=== PATIENT | male | born 1960 | race Two or more races ===

== ENCOUNTER 2019-05-14 06:28 | Day surgery (SDC) | payer OTHER, SELFPAY ==
[~2019-05-14] VITALS: Ht 170.2 cm; Wt 70.3 kg
[2019-05-14] VITALS (10 sets, daily range): BP systolic 119–129; BP diastolic 76–86
[2019-05-14] MEDS ORDERED: EPINEPHrine 1mg/1ml Amp ONE ×3 (06:34→06:56)
[2019-05-14] MEDS ORDERED: Polysporin Opth Oint 3.5gm ONE (06:35)
[2019-05-14] MEDS ORDERED: Diclofenac Sod 0.1% Op Soln ONE (06:35)
[2019-05-14] MEDS ORDERED: prednisoLONE acetate 1% Opth Susp 1ml ONE (06:35)
[2019-05-14] MEDS ORDERED: Carbachol 0.01% Op Soln 1.5ml vial ONE (06:35)
[2019-05-14] MEDS ORDERED: Ciprofloxacin Opth Soln 2.5ml ONE (06:35)
[2019-05-14] MEDS ORDERED: Lidocaine 1% MPF 10mg/ml 5ml ONE ×2 (06:35→07:00)
[2019-05-14] MEDS ORDERED: Lidocaine 4% Amp 5ml ONE (06:35)
[2019-05-14] MEDS ORDERED: Tetracaine 0.5% Opth 4ml Soln ONE (06:36)
[2019-05-14] MEDS ORDERED: Dexamethasone 4mg/ml vial ONE (06:36)
[2019-05-14] MEDS ORDERED: BSS 15ml BTL ONE ×2 (06:36→06:37)
[2019-05-14] MEDS ORDERED: BSS 500ml btl ONE ×2 (06:36→08:15)
[2019-05-14] MEDS ORDERED: Povidone-Iodine 5% opth solution ONE (06:36)
[2019-05-14] MEDS ORDERED: Sodium Hyaluronate 10 mg/ml 0.85ml ONE (06:36)
[2019-05-14] MEDS ORDERED: Lidocaine 2% MPF 5ml Vial INJ ONE (06:56)
[2019-05-14] MEDS ORDERED: Propofol 200mg/20ml IV ONE (07:00)
[2019-05-14] MEDS ORDERED: NS Irrig 1000ml ONE (07:00)
[2019-05-14] MEDS ORDERED: Sterile Water Irrig 1000ml IRRIG ONE (07:00)
[2019-05-14] MEDS ORDERED: LR 1000ml ONE (07:00)
[2019-05-14] MEDS: Ciprofloxacin Opth Soln 2.5ml LEFT EYE SCH ×4 (07:01→07:21)
[2019-05-14] MEDS ORDERED: Ketamine 500mg/10ml vial ONE (07:01)
[2019-05-14] MEDS ORDERED: Midazolam 2mg/2ml Inj ONE (07:01)
[2019-05-14] MEDS: Phenylephrine 10% Opth Soln 5ml LEFT EYE SCH ×4 (07:01→07:20)
[2019-05-14] MEDS: Diclofenac Sod 0.1% Op Soln LEFT EYE SCH ×4 (07:01→07:20)
[2019-05-14] MEDS: Akten 3.5% 1ml Btl LEFT EYE SCH ×4 (07:01→07:21)
[2019-05-14] MEDS: Cyclopentolate 1% Opth Sol 2ml LEFT EYE SCH ×4 (07:01→07:20)
[2019-05-14] MEDS ORDERED: ATORVASTATIN CA20 MG ORAL (07:07)
[2019-05-14] MEDS ORDERED: LOTREL 5-10 MG1 EAC1 ORAL (07:07)
--- NOTE | 2019-05-14 07:07 | Pre-Procedure Note/Attestation ---
Pre-Procedure Note/Attestation Complete Prior to Procedure Planned Procedure: left Procedure Narrative: Cataract removal with intraocular lens implantation Indications for Procedure Pre-Operative Diagnosis: Cataract Attestation I attest that I discussed the nature of the procedure; its benefits; risks and complications; and alternatives (and the risks and benefits of such alternatives ), prior to the procedure, with the patient (or the patient's legal statement services representative). I attest that, if there was a reasonable possibility of needing a blood transfusion, the patient (or the patient's legal statement services representative) was given the [facility] standardized written summary, pursuant to the [place] Blood Safety Act ([place] Health and Safety Code # 1645, as amended). I attest that I re-evaluated the patient just prior to the surgery and that there has been no change in the patient's H&P, except as documented below: Gavin Skinner MD May 14, 2019 07:07
--- NOTE | 2019-05-14 07:21 | Anethesia Preoperative Eval ---
Anesthesia Pre-op PMH/ROS General Date of Evaluation: May 14, 2019 Time of Evaluation: 07:16 Anesthesiologist: Genoveva ASA Score: ASA 3 Mallampati Score Class I : Soft palate, uvula, fauces, pillars visible Class II: Soft palate, uvula, fauces visible Class III: Soft palate, base of uvula visible Class IV: Only hard plate visible Mallampati Classification: Class II Surgeon: Susanne Diagnosis: Cataract OS Surgical Procedure: Cat Ext IOL OS Anesthesia History: none Family History: no anesthesia problems Allergies: Coded Allergies: TETRACYCLINES (Verified Allergy, Intermediate, SKIN REDNESS, 05/14/19) Medications: see eMAR Patient NPO?: Yes Past Medical History Cardiovascular: Reports: HTN, other - HL Gastrointestinal/Genitourinary: Reports: other - Vasectomy HEENT: Reports: cataract (L), cataract (R) PSxH Narrative: R Cat Ext IOL, R Knee Arthroscopy, Vasectomy Anesthesia Pre-op Phys. Exam Physician Exam Last Vital Signs Date Time Temp Pulse Resp B/P (MAP) Pulse Ox O2 Delivery O2 Flow Rate FiO2 05/14/19 07:04 97.7 54 18 126/79 99 Room Air Constitutional: NAD Neurologic: CN 2-12 intact Cardiovascular: RRR Respiratory: CTA Gastrointestinal: S/NT/ND Airway Exam Mallampati Score: Class II MO: limited ROM: limited Teeth: missing, intact Anesthesia Pre-op A/P Risk Assessment & Plan Assessment: ASA 3 Plan: GA Status Change Before Surgery: No Christiano Tomas MD May 14, 2019 07:21
--- NOTE | 2019-05-14 07:23 | Immediate Post-Op Evaluation ---
Immediate Post-Op Evalulation Immediate Post-Op Evalulation Procedure: L Eye Cat Ext IOL Date of Evaluation: May 14, 2019 Time of Evaluation: 08:48 IV Fluids: 600 LR Blood Products: 0 Estimated Blood Loss: 1 Urinary Output: 0 Blood Pressure Systolic: 129 Blood Pressure Diastolic: 82 Pulse Rate: 54 Respiratory Rate: 16 O2 Sat by Pulse Oximetry: 100 Temperature (Fahrenheit): 97.6 Pain Score (1-10): 1 Nausea: No Vomiting: No Complications 0 Patient Status: awake, reacts, patent, none Hydration Status: adequate Christiano Tomas MD May 14, 2019 07:23
--- NOTE | 2019-05-14 07:24 | 48 Hour Post Anesthesia Eval ---
Post Anesthesia Evaluation Procedure: L Eye Cat Ext IOL Date of Evaluation: May 14, 2019 Time of Evaluation: 11:12 Blood Pressure Systolic: 126 0: 74 Pulse Rate: 61 Respiratory Rate: 18 Temperature (Fahrenheit): 98 O2 Sat by Pulse Oximetry: 100 Airway: patent Nausea: No Vomiting: No Pain Intensity: 2 Hydration Status: adequate Cardiopulmonary Status: Stable Mental Status/LOC: patient returned to baseline Follow-up Care/Observations: 0 Post-Anesthesia Complications: 0 Follow-up care needed: ready to discharge Christiano Tomas MD May 14, 2019 07:24
--- NOTE | 2019-05-14 08:32 | Operative Note - PDOC ---
Operative Note Operative Note Date of Operation/Procedure: May 14, 2019 Pre-op Diagnosis: Cataract Procedure: Cataract Extraction with intraocular lens implant Post-op Diagnosis: Same Post-op Diagnosis: same as pre-op Surgeon: Gavin Skinner Medical Equipment Sales: Lewis Anesthesiologist: Genoveva Anesthesia: MAC Specimen: none Complications: none Condition: stable Estimated Blood Loss: none Drains: none Implant(s) used?: Yes Indications for Procedure Poor vision Description of Procedure See dictation Gavin Skinner MD May 14, 2019 08:32
--- NOTE | 2019-05-14 08:37 | Operative Note - PDOC ---
Operative Note Operative Note Date of Operation/Procedure: May 14, 2019 Chief Complaint: Poor vision left eye Pre-op Diagnosis: Cataract left eye Procedure: Cataract Extraction with intraocular lens implant left eye Post-op Diagnosis: Same Post-op Diagnosis: same as pre-op Surgeon: Gavin Skinner Rivet Maker: None Anesthesiologist: Genoveva Anesthesia: MAC Specimen: none Complications: none Condition: stable Estimated Blood Loss: none Drains: none Implant(s) used?: Yes Gavin Skinner MD May 14, 2019 08:37
[2019-05-14] MEDS ORDERED: LR 1000ml 1,000 ML IVLG SCH (08:58)
[2019-05-14] MEDS ORDERED: Hydromorphone 0.5mg/0.5ml inj IVP PRN (09:00)
[2019-05-14] MEDS ORDERED: HYDROcodone/Acetamin 7.5/325 tab ORAL PRN (09:00)
[2019-05-14] MEDS ORDERED: Atropine Sulfate 0.4mg/ml inj IVP PRN (09:00)
[2019-05-14] MEDS ORDERED: Meperidine 25mg/0.5ml Inj (FOR RIGORS ONLY) IV PRN (09:00)
[2019-05-14] MEDS ORDERED: fentaNYL 100 mcg/2 mL IV PRN (09:00)
[2019-05-14] MEDS ORDERED: LORazepam Inj 2mg/ml 1ml IV PRN (09:00)
[2019-05-14] MEDS ORDERED: oxyCODONE HCL/Acetaminophen 5/325mg ORAL PRN (09:00)
[2019-05-14] MEDS ORDERED: Labetalol 5mg/ml 20ml vial IV PRN (09:00)
[2019-05-14] MEDS ORDERED: HYDROcodone/Acetamin 5/325 tab ORAL PRN (09:00)
[2019-05-14] MEDS ORDERED: Midazolam 2mg/2ml Inj IVP PRN (09:00)
[2019-05-14] MEDS ORDERED: DiphenhydrAMINE 50mg/ml Inj IVP PRN (09:00)
[2019-05-14] MEDS ORDERED: Ketorolac 30mg Inj IV PRN ×2 (09:00)
[2019-05-14] MEDS ORDERED: Metoclopramide 10mg/2ml Inj IVP PRN (09:00)
--- NOTE | 2019-05-14 16:30 | Operative Note - Dictated ---
DATE OF OPERATION: 05/14/2019 SURGEON: Gavin Skinner M.D. PHARMACY INNOVATION ASSISTANT: None. ANESTHESIA: MAC. ANESTHESIOLOGIST: Christiano Tomas M.D. PREOPERATIVE DIAGNOSES: 1. 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 2. Status post LASIK, left eye. 3. Pseudophakia, right eye. 4. Status post LASIK, right eye. POSTOPERATIVE DIAGNOSES: 1. 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 2. Status post LASIK, left eye. 3. Pseudophakia, right eye. 4. Status post LASIK, right eye. PRINCIPAL PROCEDURE: Phacoemulsification with primary implantation of Toric intraocular lens, left eye. DESCRIPTION OF PROCEDURE: The patient has been evaluated in my office for the past six years. He presented with myopia, astigmatism, and presbyopia. In July of 2013, he underwent bilateral LASIK to allow correction of his vision so that right eye saw near and the left eye saw distant so with that correction. This worked quite well until December 2014 when cataract in his right eye caused a significant shift in his myopia impairment. He underwent successful surgery and the right eye has been very clear and near since that time. Visual acuity in the left eye has gradually diminished due to increasing cataract. After discussing the risks, benefits, and alternatives, the associated guarded prognosis due to previous LASIK, informed consent was obtained to proceed with cataract extraction in the left eye. The plan was to minimize postoperative astigmatism to maximize the left uncorrected distant vision. The patient was therefore brought to the [facility] where the left pupil was dilated and an intravenous line was started. In the preoperative holding area, the corneal position of the limbus were delineated with a sterile marking pen. The patient was then brought into the operating room where the left eye was prepped and draped in the usual fashion for intraocular surgery. Under the operating microscope, the Bentley marker was used to carefully identify the proper axis for orientation of the intraocular lens at 88 degrees. The cornea was then covered with viscoelastic. A clear corneal temporal incision was made in the anterior chamber filled with Shugarcaine and viscoelastic. A continuous tear capsulotomy was accomplished. Hydrodissection was utilized to facilitate phacoemulsification. A two-handed phacoemulsification technique was used to fracture the lens nucleus into quadrants and the segments removed in sequence. The irrigation/aspiration hand piece was then used to remove all residual lens cortex and romanian the posterior capsule. Viscoelastic was introduced. An intraocular lens from [employer], model JVV086 with a power of 19.5 diopters, was folded into the lens insertion cartridge, injected into the posterior chamber of the eye and positioned within the capsular bag. The astigmatic markings on the lens were then aligned with the astigmatic markings on the cornea. The viscoelastic was removed. The wound was adjusted, made watertight without sutures. The lens orientation was verified. The intraocular pressure was adjusted to normal. One drop of 10% Betadine, one drop of prednisolone acetate, and one drop of ciprofloxacin was placed on the eye. The eye was covered with an eye shield. This completed the procedure. All sponge and needle counts were correct. The patient was taken to the PAR in a good condition having tolerated the procedure well. Gavin Skinner M.D. DR: XAVI JOB#: [id number] CC:
== END 2019-05-14 10:00 | disposition home or self-care (01) ==
LOC: SUR 06:28
DX: H25.812 Combined forms of age-related cataract, left eye (principal); Z96.1 Presence of intraocular lens; Z98.890 Other specified postprocedural states; I10 Essential (primary) hypertension
CPT/HCPCS: 66982; J0171; J1100; J1885; J2250; J2704; J3370; J3490; J7120; V2632; 94003; 94150